=== PATIENT | male | born 1980 | race Two or more races ===

== ENCOUNTER 2017-10-14 15:42 | Emergency (ER) | payer BC ==
--- NOTE | 2017-10-14 16:16 | EDM.PDOC ---
ED HPI GENERAL MEDICAL PROBLEM - General Chief Complaint: Eye Problems Stated Complaint: LT EYE HURTS Time Seen by Provider: 10/14/17 16:13 Source of Information: Reports: Patient History Limitations: Reports: No Limitations - History of Present Illness INITIAL COMMENTS - FREE TEXT/NARRATIVE: HISTORY AND PHYSICAL: History of present illness: Patient is a 37-year-old male who presents to the emergency room with complaints of swelling to his left upper lid. He is here requesting antibiotics. He denies any change in vision, tearing or drainage. Denies any trauma or injury to the affected eye. Denies any fever, chills, headache. Systemic complaints. Review of systems: As per history of present illness and below otherwise all systems reviewed and negative. Past medical history: As per history of present illness and as reviewed below otherwise noncontributory. Surgical history: As per history of present illness and as reviewed below otherwise noncontributory. Social history: No reported history of drug or alcohol abuse. Family history: As per history of present illness and as reviewed below otherwise noncontributory. Physical exam: General: Developed and well nourished 37-year-old male. Alert and oriented. Nontoxic appearing and in no acute distress. HEENT: Atraumatic, normocephalic, pupils equal and reactive bilaterally, negative for conjunctival pallor or scleral icterus, stye noted to the left medial upper lid, free of redness or drainage. His mucous membranes are moist, throat clear, neck supple, nontender, trachea midline. No drooling or trismus noted. No meningeal signs Lungs: Clear to auscultation, breath sounds equal bilaterally, chest nontender. Heart: S1S2, regular rate and rhythm without overt murmur Abdomen: Soft, nondistended, nontender. Negative for masses or hepatosplenomegaly. Negative for costovertebral tenderness. Pelvis: Stable nontender. Genitourinary: Deferred. Rectal: Deferred. Skin: Intact, warm, dry. No lesions or rashes noted. Extremities: Atraumatic, negative for cords or calf pain. Neurovascular unremarkable. Neuro: Awake, alert, oriented. Cranial nerves II through XII unremarkable. Cerebellum unremarkable. Motor and sensory unremarkable throughout. Exam nonfocal. Notes: Visual acuity is normal area patient. He does not wear contact lenses or corrective glasses. Eye exam shows no corneal abrasion. RX for erythromycin ointment. Education completed. Patient voices understanding and is agreeable to plan of care. Denies any questions at this time. Diagnostics: [] Therapeutics: Eye Exam Impression: Nahomy, left Plan: 1. Please apply the erythromycin ointment in your left eye 4 times daily over the next 7 days 2. Warm compresses with warm/hot towel with gentle pressure to the closed lid. Do this 4-5 times per day for 10-15 minutes at a time. This may be accompanied by gentle massage of the area. (Make sure your heads/fingers are clean to avoid scratching your eye). 3. Follow with your primary care provider as needed. Return to the ED as needed and as discussed. Definitive disposition and diagnosis as appropriate pending reevaluation and review of above. Duration: Day(s): Location: Reports: Face Left Eye Pain Score (Numeric/FACES): 2 - Related Data Allergies Allergy/AdvReac Type Severity Reaction Status Date / Time bee venom protein (honey bee) Allergy Swelling Verified 10/14/17 15:54 Home Meds: Home Meds . [No Known Home Meds] 10/14/17 [History] Past Medical History - Past Health History Medical/Surgical History: Denies Medical/Surgical History Social & Family History - Family History Family Medical History: Noncontributory - Tobacco Use Smoking Status *Q: Never Smoker - Caffeine Use Caffeine Use: Reports: None - Recreational Drug Use Recreational Drug Use: No ED ROS GENERAL - Review of Systems Review Of Systems: ROS reveals no pertinent complaints other than HPI. ED EXAM GENERAL W FULL EYE - Physical Exam Exam: See Below (See dictation) Course - Vital Signs Last Recorded V/S: Last Vital Signs Temp 96.9 F 10/14/17 15:51 Pulse 86 10/14/17 15:51 Resp 18 10/14/17 15:51 BP 127/82 10/14/17 15:51 Pulse Ox 96 10/14/17 15:51 Departure - Departure Time of Disposition: 16:15 Disposition: Home, Self-Care 01 Clinical Impression: Hordeolum externum (stye) Qualifiers: Laterality: left Eyelid: upper Qualified Code(s): H00.014 - Hordeolum externum left upper eyelid - Discharge Information Instructions: Stye Referrals: PCP,None [Primary Care Provider] - Forms: ED Department Discharge Additional Instructions: The following information is given to patients seen in the emergency department who are being discharged to home. This information is to outline your options for follow-up care. We provide all patients seen in our emergency department with a follow-up referral. The need for follow-up, as well as the timing and circumstances, are variable depending upon the specifics of your emergency department visit. If you don't have a primary care physician on staff, we will provide you with a referral. We always advise you to contact your personal physician following an emergency department visit to inform them of the circumstance of the visit and for follow-up with them and/or the need for any referrals to a consulting specialist. The emergency department will also refer you to a specialist when appropriate. This referral assures that you have the opportunity for follow-up care with a specialist. All of these measure are taken in an effort to provide you with optimal care, which includes your follow-up. Under all circumstances we always encourage you to contact your private physician who remains a resource for coordinating your care. When calling for follow-up care, please make the office aware that this follow-up is from your recent emergency room visit. If for any reason you are refused follow-up, please contact the [facility] Emergency Department at and asked to speak to the emergency department charge nurse. [facility] [address] [place] [id number] 1. Please apply the erythromycin ointment in your left eye 4 times daily over the next 7 days 2. Warm compresses with warm/hot towel with gentle pressure to the closed lid. Do this 4-5 times per day for 10-15 minutes at a time. This may be accompanied by gentle massage of the area. (Make sure your heads/fingers are clean to avoid scratching your eye). 3. Follow with your primary care provider as needed. Return to the ED as needed and as discussed.
== END 2017-10-14 16:31 | disposition home or self-care (01) ==
LOC: MW.ED 15:42
DX: H00.014 Hordeolum externum left upper eyelid (principal); Z91.030 Bee allergy status
CPT/HCPCS: 99282; 99283